=== PATIENT | female | born 1975 | race Two or more races ===

== ENCOUNTER → 2024-07-18 | Outpatient (CLI) | payer MEDICAID, SELFPAY ==
--- NOTE | 2024-07-18 08:15 | XR_ITS ---
Examination: Screening digital mammography, bilateral Computer aided detection 3-D breast Tomosynthesis, bilateral Date and time of exam: July 18, 2024 0815 hours Compared to mammograms dating to December 20, 2020 Indication: Screening Technique: Nonmagnified MLO, CC views of the breasts to been obtained, reconstructed from 3-D Tomosynthesis images. R2 computer aided detection program utilized for evaluation of suspicious masses and/or abnormal calcifications. 3-D Tomosynthesis images obtained. Findings: The breasts are heterogeneously dense, which may obscure small masses 10 mm focal asymmetry slightly inner left breast, nipple level on the MLO view Benign calcifications Impression: BI-RADS Category 0 incomplete: Need additional imaging evaluation 10 mm focal asymmetry slightly inner left breast, recommend follow-up spot tomographic views of this asymmetry as well as left breast sonography to complete the workup
== END | disposition home or self-care (01) ==
LOC: CDIM 08:06
PROVIDERS: Referring Provider Physician Assistant; Visit Provider Physician Assistant
DX: Z12.31 Encounter for screening mammogram for malignant neoplasm of breast (principal); N64.89 Other specified disorders of breast
CPT/HCPCS: 77063; 77067

== ENCOUNTER → 2024-11-04 | Outpatient (CLI) | payer MEDICAID, SELFPAY ==
--- NOTE | 2024-11-04 11:15 | XR_ITS ---
Examination: Breast ultrasound, unilateral, left complete Date and time of exam: November 04, 2024 1056 hours INDICATIONS: Mammogram July 18, 2024 10 mm focal asymmetry inner left breast Technique: Real-time clayton scale ultrasonographic imaging performed left breast including all 4 quadrants as well as nipple retroareolar and axillary region. Findings: 1:00 circumscribed nodule 5 x 4 mm 3:00 lobular nodule 7 x 4 mm 9:00 cyst 4 x 4 millimeter IMPRESSION: BI-RADS Category 3: Probably benign findings One additional 6 month left breast sonogram follow-up is needed to document stability of 1:00 3:00 nodules left breast
--- NOTE | 2024-11-04 11:45 | XR_ITS ---
Examination: Diagnostic digital mammography, unilateral, left Computer aided detection 3-D breast Tomosynthesis, unilateral Date and time of exam: November 04, 2024, 1109 hours. INDICATIONS: Mammogram July 18, 2024 10 mm focal asymmetry inner left breast Technique: Nonmagnified MLO, CC views of the left breast have been obtained, reconstructed from 3-D Tomosynthesis images. R2 computer aided detection program utilized for evaluation of suspicious masses and/or abnormal calcifications. 3-D Tomosynthesis images obtained. Findings: The breast is heterogeneously dense, which may obscure small masses Spot compression films do not demonstrate suspicious nodule Impression: BI-RADS category 2: Benign findings Return to yearly follow-up mammography Please see the left breast sonogram report today and recommendations
== END | disposition home or self-care (01) ==
PROVIDERS: PCP Physician Assistant; Referring Provider Physician Assistant; Visit Provider Physician Assistant
DX: R92.322 Mammographic fibroglandular density, left breast (principal); N63.25 Unspecified lump in the left breast, overlapping quadrants; N63.21 Unspecified lump in the left breast, upper outer quadrant
CPT/HCPCS: 76641; 77061; 77065; G0279

== ENCOUNTER 2024-11-20 12:00 | Day surgery (SDC) | payer MEDICAID, SELFPAY ==
[2024-11-19 15:11] VITALS: BMI 24.0
[2024-11-20] VITALS (10 sets, daily range): BP systolic 117–140; BP diastolic 70–89; PULSE 67–83; RESP 9–18; TEMP 36.3–36.6; O2SAT 98–100; BMI 24.6
[2024-11-20] MEDS: RINGERS LACTATED 1000 ML 1,000 ML 100 ML IV (13:34)
[2024-11-20] MEDS: fentaNYL CIT INJ 50 mCg/ML AMP 2ML (ASD USE ONLY) IVP (13:36)
[2024-11-20] MEDS: MIDAZOLAM INJ 1 MG/ML VIAL 2 ML (ASD USE ONLY) 2 MG IVP (13:36)
== END 2024-11-20 14:38 | disposition home or self-care (01) ==
PROVIDERS: PCP Physician Assistant; Referring Provider Surgery; Visit Provider Surgery
PROC: 0DBE8ZX Excision of Large Intestine, Via Natural or Artificial Opening Endoscopic, Diagnostic (ICD-10-PCS; CPT 45380; principal; 2024-11-20 13:00)
DX: Z12.11 Encounter for screening for malignant neoplasm of colon (principal)
CPT/HCPCS: 45378; 81025; A4649; J1200; J2250; J3010; J7120